=== PATIENT | female | born 1980 | race African-American/Black ===

== ENCOUNTER 2022-08-16 18:32 | Emergency (ER) | payer BC ==
[~2022-08-16] VITALS: Ht 170.2 cm; Wt 97.5 kg
--- NOTE | 2022-08-16 19:15 | NUR ---
C/O RIGHT SIDED ABDOMINAL PAIN SINCE THIS AM. DENIES N/V/D. PATIENT IS AMBULATORY, AAOX4. ABLE TO MAKE NEEDS KNOWN. CRYING IN PAIN. VITALS CHECKED.
--- NOTE | 2022-08-16 19:15 | NUR ---
XRAY DONE AT BEDSIDE, BLOOD DRAWN BY CHOKER HOOKER
--- NOTE | 2022-08-16 19:25 | NUR ---
URINE SPECIMEN SENT TO LAB
[2022-08-16] MEDS ORDERED: IV NS 0.9% 1,000 ML BAG IV ONE (19:30)
[2022-08-16] MEDS ORDERED: MORPHINE SULFATE INJ 2 MG/ML DISP.SYRIN IV ONE (19:30)
[2022-08-16] MEDS ORDERED: ONDANSETRON HCL/PF 4 MG/2 ML VIAL IVP ONE (19:30)
--- NOTE | 2022-08-16 19:30 | NUR ---
SEEN BY DR LIM AT BEDSIDE WITH ORDERS TO DO BLADDER SCAN
--- NOTE | 2022-08-16 19:37 | NUR ---
BLADDER SCAN DONE WITH RETAINING URINE OF 44ML. DR LIM MADE AWARE
[2022-08-16] MEDS ORDERED: MORPHINE SULFATE INJ 4 MG/ML DISP.SYRIN ONE (19:40)
[2022-08-16] MEDS ORDERED: ONDANSETRON HCL/PF 4 MG/2 ML VIAL ONE (19:40)
[2022-08-16 19:48] LABS: BILIRUBIN,URINE NEGATIVE (NEGATIVE); COLOR,URINE YELLOW (YELLOW); LEUKOCYTE ESTERASE ,URINE NEGATIVE (NEGATIVE); NITRITE, URINE NEGATIVE (NEGATIVE); PROTEIN,URINE NEGATIVE (NEGATIVE); UGLUCOSE NEGATIVE (NEGATIVE); UROBILINOGEN,URINE 0.2 EU/dL (0.2)
[2022-08-16 19:55] LABS: ALBUMIN 4.2 g/dL (3.4-5.0); BILIRUBIN,DIRECT 0.1 mg/dL (0.0-0.2); BILIRUBIN,TOTAL 0.4 mg/dL (0.2-1.0); CREATININE 1.1 mg/dL (0.6-1.3); POTASSIUM 3.8 mmol/L (3.5-5.1); TOTAL PROTEIN, SERUM 8.5 g/dL (6.4-8.2)
--- NOTE | 2022-08-16 20:14 | NUR ---
CAME BACK FROM CT DEPT
[2022-08-16 20:15] LABS: RBC,URINE 0-2 /HPF (0-2)
[2022-08-16 20:16] LABS: BACTERIA,URINE Few /HPF (None Seen); COARSE GRANULAR CASTS,URINE Few /LPF (None Seen); SQUAMOUS EPITHELIAL CELL,UR Moderate /HPF (None Seen); WBC,URINE NONE SEEN /HPF (0-3)
[2022-08-16 20:45] LABS: BASOPHILS % (AUTO) 0.2 % (0.0-2.0); EOSINOPHILS % (AUTO) 0.4 % (0.0-6.0); HEMATOCRIT 36 % (33-45); HEMOGLOBIN 11.4 g/dL (11.5-14.8); LYMPHOCYTES # (AUTO) 1.4 K/uL (0.8-4.8); LYMPHOCYTES % (AUTO) 12.6 % (20.0-44.0); MEAN CORPUSCULAR HGB CONC 32 g/dl (31.0-36.0); MEAN CORPUSCULAR VOLUME 64 fL (82-100); MONOCYTES # (AUTO) 0.5 K/uL (0.1-1.30); MONOCYTES % (AUTO) 4.7 % (2.0-12.0); NEUTROPHILS # (AUTO) 9.3 K/uL (1.8-8.9); NEUTROPHILS % (AUTO) 82.1 % (43.0-81.0); PLATELET COUNT (AUTO) 281 K/uL (150-450); RED BLOOD CELL COUNT(AUTO) 5.64 MIL/uL (4.0-5.2); WHITE BLOOD COUNT (AUTO) 11.4 K/uL (4.3-11.0)
[2022-08-16 22:04] LABS: LYMPHOCYTES % (MANUAL) 13 % (16-48); MONOCYTES % (MANUAL) 5 % (0-11.0); NEUTROPHILS % (MANUAL) 82 (42-76)
[2022-08-16] MEDS ORDERED: PIPERACILLIN /TAZOBACTAM 3.375 G VIAL IV ONE (22:05)
[2022-08-16] MEDS ORDERED: AMOX-430 PO (22:20)
[2022-08-16] MEDS ORDERED: HYDR-3972 PO (22:20)
[2022-08-16] MEDS ORDERED: PIPERACILLIN /TAZOBACTAM 3.375 G in IV D5W 50 ML IV ONE (22:30)
[2022-08-16 22:33] VITALS: BP 119/89
--- NOTE | 2022-08-16 22:33 | NUR ---
JOANN MARIE REMVED
--- NOTE | 2022-08-16 22:33 | NUR ---
Patient discharged to home in stable condition. Written and verbal after care instructions given. Patient verbalizes understanding of instruction.
[2022-08-16] MEDS ORDERED: HYDR-4279 PO (23:00)
== END 2022-08-16 22:39 | disposition home or self-care (01) ==
LOC: ER 18:33
DX: K57.92 Diverticulitis of intestine, part unspecified, without perforation or abscess without bleeding (principal); J45.909 Unspecified asthma, uncomplicated; Z60.2 Problems related to living alone
CPT/HCPCS: 99285; 74176; 96365; 71045; 96375; 96361; 85025; 80048; 83690; 80076; 84703; 81001; 36415; 85007; J2270; J2405; J2543 ×2; J7060; J7030